=== PATIENT | male | born 1950 | race Caucasian/White ===

== ENCOUNTER 2023-11-14 00:25 | Inpatient (IN) | payer MEDICARE, OTHER ==
[2023-11-14] MEDS: Sodium Chloride 0.9% 1,000 ML IV ONE ×3 (00:29→02:03)
[2023-11-14] MEDS ORDERED: Sodium Chloride 0.9% 10 ML Syringe FLUSH PRN (00:38)
[2023-11-14 00:56] LABS: BASOPHILS ABSOLUTE AUTO 0.05 10^3/uL (0.00-0.10); BASOPHILS PERCENT AUTO 0.3 % (0.0-1.0); EOSINOPHILS ABSOLUTE AUTO 0.34 10^3/uL (0.10-0.30); EOSINOPHILS PERCENT AUTO 2.1 % (1.0-3.0); HEMATOCRIT 51.3 % (40.0-52.0); HEMOGLOBIN 17.4 g/dL (13.0-17.0); IMMATURE GRAN ABSOLUTE AUTO 0.13 10^3/uL (0.00-0.50); IMMATURE GRAN PERCENT AUTO 0.8 % (0.0-5.0); LYMPHOCYTES ABSOLUTE AUTO 4.52 10^3/uL (1.00-4.00); LYMPHOCYTES PERCENT AUTO 27.4 % (20.0-40.0); MEAN CORPUSCULAR HEMOGLOBIN 32.5 pg (27.0-31.0); MEAN CORPUSCULAR HGB CONC 33.9 g/dL (32.0-36.0); MEAN CORPUSCULAR VOLUME 95.7 fL (82.0-92.0); MEAN PLATELET VOLUME 10.7 fL (7.4-10.4); MONOCYTES ABSOLUTE AUTO 0.39 10^3/uL (0.10-0.80); MONOCYTES PERCENT AUTO 2.4 % (2.0-8.0); NEUTROPHILS ABSOLUTE AUTO 11.04 10^3/uL (2.50-7.00); PLATELET COUNT,PLT 225 10^3/uL (150-400); RED BLOOD CELL COUNT 5.36 10^6/uL (4.50-6.00); RED CELL DISTRIBUTION WIDTH 12.1 % (11.5-14.5); WHITE BLOOD CELL COUNT,WBC 16.47 10^3/uL (5.00-10.00)
[2023-11-14] MEDS ORDERED: Sodium Chloride 0.9% 1,000 ML IV ONE (01:02)
[2023-11-14] MEDS: Sodium Chloride 0.9% 1,000 ML ONE ×2 (01:03→02:02)
[2023-11-14 01:18] LABS: LACTIC ACID 11.1 mmol/L (0.4-2.0)
[2023-11-14 01:24] LABS: ALBUMIN 4.23 g/dL (3.40-5.00); ANION GAP 21.8 mmol/L (5-15); BILIRUBIN TOTAL 0.6 mg/dL (0.2-1.0); CALCIUM 9.4 mg/dL (8.7-10.3); CARBON DIOXIDE,CO2 24.1 mmol/L (21.0-32.0); CREATININE 0.83 mg/dL (0.51-1.17); EST CRCL DRUG DOSING (CG) 78.08 mL/min; POTASSIUM,K 3.9 mmol/L (3.5-5.1)
[2023-11-14 01:30] LABS: APPEARANCE,URINE CLEAR (CLEAR); BILIRUBIN,URINE NEGATIVE (NEGATIVE); COLOR,URINE YELLOW (YELLOW); GLUCOSE,URINE NEGATIVE (NEGATIVE); KETONES,URINE NEGATIVE (NEGATIVE); LEUKOCYTE ESTERASE,URINE NEGATIVE (NEGATIVE); NITRITE,URINE NEGATIVE (NEGATIVE); PROTEIN,URINE >=300 mg/dL (NEGATIVE); UROBILINOGEN,URINE 0.2 E.U./dL (0.2-1.0)
[2023-11-14 01:31] LABS: OCCULT BLOOD,URINE TRACE-INTACT (NEGATIVE)
[2023-11-14 01:32] LABS: BACTERIA,URINE RARE /HPF (NONE TO FEW); EPITHELIAL CELLS,URINE OCCASIONAL /LPF; GRANULAR CASTS,URINE FEW; RBC,URINE 0-5 /HPF (0-5); WBC,URINE 0-5 /HPF (0-5)
[2023-11-14 01:33] LABS: AMPHETAMINES SCREEN, URINE NEGATIVE (NEGATIVE); BARBITURATE SCREEN,URINE NEGATIVE (NEGATIVE); BENZODIAZEPINES SCREEN,URINE NEGATIVE (NEGATIVE); COCAINE METABOLITES,URINE NEGATIVE (NEGATIVE); METHADONE SCREEN, URINE NEGATIVE (NEGATIVE); METHAMPHETAMINES SCREEN, URINE NEGATIVE (NEGATIVE); OXYCODONE SCREEN,URINE NEGATIVE (NEGATIVE); PCP SCREEN,URINE NEGATIVE (NEGATIVE); PROPOXYPHENE SCREEN,URINE NEGATIVE (NEGATIVE); TCA SCREEN,URINE NEGATIVE (NEGATIVE); THC SCREEN,URINE 50 NG/ML NEGATIVE (NEGATIVE)
[2023-11-14] MEDS: Diphtheria,Pertussis(Acell),Tetanus Vaccine 0.5 ML Syringe IM ONE (02:54)
[2023-11-14] MEDS ORDERED: Ondansetron 4 MG/2 ML SDV IV PRN (05:07)
[2023-11-14] MEDS: Heparin Sodium 5,000 Units/ML Vial SUBCUT SCH (06:14)
[2023-11-14] MEDS: Sodium Chloride 0.9% 1,000 ML IV SCH ×2 (06:14→14:42)
[2023-11-14] MEDS: Ampicillin/Sulbactam Na 3 GM in Sodium Chloride 0.9% 100 ML IV SCH (06:45)
[2023-11-14 07:47] LABS: HEMATOCRIT 42.2 % (40.0-52.0); HEMOGLOBIN 14.6 g/dL (13.0-17.0); IMMATURE GRAN ABSOLUTE AUTO 0.03 10^3/uL (0.00-0.50); IMMATURE GRAN PERCENT AUTO 0.2 % (0.0-5.0); LYMPHOCYTES ABSOLUTE AUTO 0.63 10^3/uL (1.00-4.00); LYMPHOCYTES PERCENT AUTO 4.4 % (20.0-40.0); MEAN CORPUSCULAR HEMOGLOBIN 31.7 pg (27.0-31.0); MEAN CORPUSCULAR HGB CONC 34.6 g/dL (32.0-36.0); MEAN CORPUSCULAR VOLUME 91.7 fL (82.0-92.0); MONOCYTES ABSOLUTE AUTO 1.22 10^3/uL (0.10-0.80); MONOCYTES PERCENT AUTO 8.5 % (2.0-8.0); NEUTROPHILS ABSOLUTE AUTO 12.41 10^3/uL (2.50-7.00); NEUTROPHILS PERCENT AUTO 86.9 % (50.0-70.0); PLATELET COUNT,PLT 186 10^3/uL (150-400); RED CELL DISTRIBUTION WIDTH 12.1 % (11.5-14.5); WHITE BLOOD CELL COUNT,WBC 14.29 10^3/uL (5.00-10.00)
[2023-11-14 07:52] LABS: ALBUMIN 3.15 g/dL (3.40-5.00); ANION GAP 19.5 mmol/L (5-15); BILIRUBIN TOTAL 0.7 mg/dL (0.2-1.0); CARBON DIOXIDE,CO2 19.9 mmol/L (21.0-32.0); CREATININE 0.69 mg/dL (0.51-1.17); EST CRCL DRUG DOSING (CG) 93.93 mL/min; MAGNESIUM 1.1 mg/dL (1.8-2.4); PHOSPHORUS 2.4 mg/dL (2.6-4.7); POTASSIUM,K 3.4 mmol/L (3.5-5.1); PROTEIN TOTAL,TP 6.2 g/dL (6.4-8.2)
[2023-11-14] MEDS: Potassium Chloride 20 MEQ in Premix Bag 1 BAG IV ONE (10:42)
[2023-11-14 11:38] LABS: ALBUMIN 3.17 g/dL (3.40-5.00); ANION GAP 16.8 mmol/L (5-15); BILIRUBIN TOTAL 0.9 mg/dL (0.2-1.0); CARBON DIOXIDE,CO2 22.2 mmol/L (21.0-32.0); CREATININE 0.7 mg/dL (0.51-1.17); EST CRCL DRUG DOSING (CG) 92.58 mL/min; MAGNESIUM 1.2 mg/dL (1.8-2.4); PROTEIN TOTAL,TP 6.2 g/dL (6.4-8.2)
[2023-11-14] MEDS: Potassium Chloride 20 MEQ Tab.ER PO ONE (11:57)
[2023-11-14] MEDS: Magnesium Oxide 500 MG Tab PO SCH (11:57)
[2023-11-14] MEDS: Acetaminophen 325 MG Tab PO PRN (15:02)
[2023-11-14] MEDS: Lisinopril 5 MG Tab PO SCH (15:43)
[2023-11-14] MEDS: PHYTONADIONE 10 MG/ML PO ONE (15:44)
[2023-11-14] MEDS ORDERED: Melatonin 3 MG Tab PO PRN (19:45)
[2023-11-14] MEDS: Morphine 2 MG/ML SYRINGE IVPUSH PRN (20:11)
[2023-11-14] MEDS: Gabapentin 100 MG Cap PO SCH (20:11)
[2023-11-14] MEDS: Sodium Chloride 0.9% 10 ML Syringe FLUSH PRN (20:13)
[2023-11-14] MEDS: Morphine 2 MG/ML SYRINGE IVPUSH ONE (22:55)
== END 2023-11-14 23:07 | DRG 557 ==
LOC: KA.ED 00:25 → KA.MS 03:20
PROVIDERS: ADMIT Nurse Practitioner; ATTEND Internal Medicine
DX: M62.82 Rhabdomyolysis (principal); J69.0 Pneumonitis due to inhalation of food and vomit; I96 Gangrene, not elsewhere classified; T68.XXXA Hypothermia, initial encounter; W00.0XXA Fall on same level due to ice and snow, initial encounter; S60.429A Blister (nonthermal) of unspecified finger, initial encounter; S90.426A Blister (nonthermal), unspecified lesser toe(s), initial encounter; S60.222A Contusion of left hand, initial encounter; M17.9 Osteoarthritis of knee, unspecified; Z96.659 Presence of unspecified artificial knee joint; S70.02XA Contusion of left hip, initial encounter; S50.02XA Contusion of left elbow, initial encounter; S80.812A Abrasion, left lower leg, initial encounter; S00.81XA Abrasion of other part of head, initial encounter; S00.531A Contusion of lip, initial encounter; D72.829 Elevated white blood cell count, unspecified; I10 Essential (primary) hypertension; S60.511A Abrasion of right hand, initial encounter; Z79.899 Other long term (current) drug therapy; R71.8 Other abnormality of red blood cells; R74.8 Abnormal levels of other serum enzymes; R74.02 Elevation of levels of lactic acid dehydrogenase [LDH]; M19.90 Unspecified osteoarthritis, unspecified site
CPT/HCPCS: 36415; 51702; 70450; 71045; 80053; 80305-QW; 80307; 81001; 82550; 82947; 83605; 83735; 83880; 84100; 84484; 85025; 87040; 90471; 90715; 93005; 93010; 96360; 96361; 99236-GT; 99284; 99285-25; A9270-GY; J0295; J1644; J2270; J3480; J3490; J7030; Q3014